=== PATIENT | female | born 1990 | race Two or more races ===

== ENCOUNTER 2016-12-13 23:52 | Emergency (ER) | payer OTHER ==
[2016-12-14 02:53] LABS: Hematocrit 37 % (35-47); Hemoglobin 12.7 g/dl (12.0-16.0); Mean Corpuscular HGB Conc 34 g/dl (31-36); Mean Corpuscular Hemoglobin 31 pg (27-31); Mean Corpuscular Volume 90 fL (80-97); Mean Platelet Volume 9 um3 (7.4-10.4); Red Blood Count 4.07 10^6/ul (4.0-5.4); Red Cell Distribution Width 13 % (10.5-15); White Blood Count 3.6 10^3/ul (3.5-10.8)
[2016-12-14 03:01] LABS: Albumin 4.3 g/dL (3.2-5.2); Anion Gap 7 mmol/L (2-11); BUN/Creatinine Ratio 9.2 (8-20); Blood Urea Nitrogen 6 mg/dL (6-24); CO2 Carbon Dioxide 24 mmol/L (22-32); Calcium 8.8 mg/dL (8.6-10.3); Chloride 102 mmol/L (101-111); EGFR African American 141.7 (>60); EGFR Non-African American 110.2 (>60); Glucose 124 mg/dL (70-100); Potassium 3.5 mmol/L (3.5-5.0); Sodium 133 mmol/L (133-145); Total Protein 6.9 g/dL (6.4-8.9)
[2016-12-14 03:02] LABS: ALT 15 U/L (7-52); AST 21 U/L (13-39); Alkaline Phosphatase 45 U/L (34-104); C Reactive Protein 163.38 mg/L (< 5.00); Globulin 2.6 g/dL (2-4); Lipase 21 U/L (11.0-82.0)
[2016-12-14 03:41] LABS: Urine Bilirubin Negative (Negative); Urine Glucose Negative (Negative); Urine Nitrite Negative (Negative)
[2016-12-14] MEDS ORDERED: Ondansetron INJ* 2 MG/ML VIAL IV ONE (05:35)
[2016-12-14] MEDS ORDERED: Ciprofloxacin 400MG IVPREMIX(* 400 MG/200 ML BAG IVPB ONE (05:35)
[2016-12-14] MEDS ORDERED: NS 0.9% 1000 ML* 2,000 ML IV ONE (05:38)
[2016-12-14] MEDS ORDERED: NS 0.9% 1000 ML* 1,000 ML BOLUS SCH (05:45)
[2016-12-14] MEDS ORDERED: Iohexol 300* (CONTRAST) 10 ML SDV IV ONE (05:47)
[2016-12-14] MEDS ORDERED: Metoclopramide IV* 5 MG/ML 2 ML VIAL IV ONE (06:17)
--- NOTE | 2016-12-14 07:49 | ED ---
Jerman Best Thomas, scribed for Shanika Pak MD on 12/14/16 at 0513 . HPI Febrile Illness - HPI Summary HPI Summary: The pt is a 26 y/o F accompanied by boyfriend presenting to the ED c/o a fever ( Tmax 102) and diarrhea that began two days ago. At first, she had bloody stools , but in the last two days her stools have been watery. Bloody stools are not unusual for her. The pt rates the pain 4/10. The patient has treated the fever with ibuprofen [employer]. She vomited after taking ciprofloxacin last night, causing her to miss her dosage. She had an appointment at [facility] two days ago and was diagnosed with a kidney infection. She was discharged with a prescription of Ciprofloxacin. Pt additionally c/o chills, diaphoresis, lower abd pain, and vomiting. Pt denies any other complaints at this time. PMHx: IBS. PSHx: none. SHx: no smoking, no alcohol use, no illicit drug use. FHx: DM. She is on Nexplanon and her menstrual cycle was 04/2014. She has never been . - History of Current Complaint Chief Complaint: EDNauseaVomitDiarrh Time Seen by Provider: 12/14/16 04:43 Hx Obtained From: Patient, Family/Cds Sales Advisor - boyfriend in room Onset/Duration: Started Days Ago - 2, Still Present Timing: Constant Temperature: 102 F Initial Severity: Moderate Current Severity: Moderate Pain Intensity: 4 Pain Scale Used: 0-10 Numeric Aggravating Factors: Nothing Alleviating Factors: Nothing Associated Signs and Symptoms: Chills, Diaphoresis, Diarrhea, Vomiting, Other: - POS: lower abd pain; NEG: any other complaints - Allergy/Home Medications Allergies/Adverse Reactions: Allergies Allergy/AdvReac Type Severity Reaction Status Date / Time No Known Allergies Allergy Verified 12/14/16 00:06 PMH/Surg Hx/FS Hx/Imm Hx Previously Healthy: No - IBS Cardiovascular History: Denies: Hx Myocardial Infarction Respiratory History: Denies: Hx Chronic Obstructive Pulmonary Disease (COPD) GI History: Reports: Other GI Disorders - Hx IBS - Surgical History Surgery Procedure, Year, and Place: none Infectious Disease History: No Infectious Disease History: Denies: Traveled Outside the [place] in Last 30 Days - Family History Known Family History: Positive: Diabetes - Social History Occupation: Student Alcohol Use: None Substance Use Type: Reports: None Smoking Status (MU): Never Smoked Tobacco Review of Systems Positive: Chills, Skin Diaphoresis. Negative: Fever - afebrile in the ED, but fever onset two days ago with Tmax 102 Cardiovascular: Negative Respiratory: Negative Positive: Abdominal Pain - lower, Vomiting, Diarrhea - onset two days Positive: see HPI Psychological: Normal All Other Systems Reviewed And Are Negative: Yes Physical Exam Triage Information Reviewed: Yes Vital Signs On Initial Exam: Initial Vitals Temp Pulse Resp BP Pulse Ox 98.1 F 129 16 101/61 97 12/14/16 00:02 12/14/16 00:02 12/14/16 00:02 12/14/16 00:02 12/14/16 00:02 Vital Signs Reviewed: Yes Appearance: Positive: Well-Appearing, Well-Nourished, Pain Distress Skin: Positive: Warm, Skin Color Reflects Adequate Perfusion Head/Face: Positive: Normal Head/Face Inspection Eyes: Positive: Conjunctiva Clear ENT: Positive: Normal ENT inspection Neck: Positive: Supple Respiratory/Lung Sounds: Positive: Clear to Auscultation, Breath Sounds Present , Other - No respiratory distress Cardiovascular: Positive: RRR, Pulses are Symmetrical in both Upper and Lower Extremities, Other - Brisk cap refill. Negative: Murmur Abdomen Description: Positive: Nontender, Soft, McBurney's Point Tenderness, Other: - no guarding, no rebound Bowel Sounds: Positive: Present Musculoskeletal: Positive: Strength/ROM Intact Neurological: Positive: Alert, Oriented to Person Place, Time, Facial Symmetry, Speech Normal, Other - Motor intact Psychiatric: Positive: Normal - Madhavi Coma Scale Coma Scale Total: 15 Diagnostics - Vital Signs Vital Signs Temp Pulse Resp BP Pulse Ox 12/14/16 04:30 86 83/49 98 12/14/16 04:00 94 101/61 98 12/14/16 03:30 90 99/59 97 12/14/16 03:00 87 96/67 98 12/14/16 02:36 90 98 12/14/16 02:34 96/64 12/14/16 00:06 98.1 F 129 16 101/61 97 12/14/16 00:02 98.1 F 129 16 101/61 97 - Laboratory Lab Results: Lab Results 12/14/16 12/14/16 12/14/16 Range/Units 02:35 02:35 02:35 WBC 3.6 (3.5-10.8) 10^3/ul RBC 4.07 (4.0-5.4) 10^6/ul Hgb 12.7 (12.0-16.0) g/dl Hct 37 (35-47) % MCV 90 (80-97) fL MCH 31 (27-31) pg MCHC 34 (31-36) g/dl RDW 13 (10.5-15) % Plt Count 156 (150-450) 10^3/ul MPV 9 (7.4-10.4) um3 Neut % (Auto) 77.8 (38-83) % Lymph % (Auto) 11.2 L (25-47) % Hyde % (Auto) 10.6 H (1-9) % Eos % (Auto) 0.1 (0-6) % Baso % (Auto) 0.3 (0-2) % Absolute Neuts (auto) 2.8 (1.5-7.7) 10^3/ul Absolute Lymphs (auto) 0.4 L (1.0-4.8) 10^3/ul Absolute Monos (auto) 0.4 (0-0.8) 10^3/ul Absolute Eos (auto) 0 (0-0.6) 10^3/ul Absolute Basos (auto) 0 (0-0.2) 10^3/ul Absolute Nucleated RBC 0 10^3/ul Nucleated RBC % 0.1 Sodium 133 (133-145) mmol/L Potassium 3.5 (3.5-5.0) mmol/L Chloride 102 (101-111) mmol/L Carbon Dioxide 24 (22-32) mmol/L Anion Gap 7 (2-11) mmol/L BUN 6 (6-24) mg/dL Creatinine 0.65 (0.51-0.95) mg/dL Est GFR ( Amer) 141.7 (>60) Est GFR (Non-Af Amer) 110.2 (>60) BUN/Creatinine Ratio 9.2 (8-20) Glucose 124 H (70-100) mg/dL Lactic Acid 0.6 (0.5-2.0) mmol/L Calcium 8.8 (8.6-10.3) mg/dL Total Bilirubin 1.10 H (0.2-1.0) mg/dL AST 21 (13-39) U/L ALT 15 (7-52) U/L Alkaline Phosphatase 45 (34-104) U/L C-Reactive Protein 163.38 H (< 5.00) mg/L Total Protein 6.9 (6.4-8.9) g/dL Albumin 4.3 (3.2-5.2) g/dL Globulin 2.6 (2-4) g/dL Albumin/Globulin Ratio 1.7 (1-3) Lipase 21 (11.0-82.0) U/L Urine Color Urine Appearance Urine pH (5-9) Ur Specific [place] (1.010-1.030) Urine Protein (Negative) Urine Ketones (Negative) Urine Blood (Negative) Urine Nitrate (Negative) Urine Bilirubin (Negative) Urine Urobilinogen (Negative) Ur Leukocyte Esterase (Negative) Urine Glucose (Negative) 12/14/16 Range/Units 03:30 WBC (3.5-10.8) 10^3/ul RBC (4.0-5.4) 10^6/ul Hgb (12.0-16.0) g/dl Hct (35-47) % MCV (80-97) fL MCH (27-31) pg MCHC (31-36) g/dl RDW (10.5-15) % Plt Count (150-450) 10^3/ul MPV (7.4-10.4) um3 Neut % (Auto) (38-83) % Lymph % (Auto) (25-47) % Hyde % (Auto) (1-9) % Eos % (Auto) (0-6) % Baso % (Auto) (0-2) % Absolute Neuts (auto) (1.5-7.7) 10^3/ul Absolute Lymphs (auto) (1.0-4.8) 10^3/ul Absolute Monos (auto) (0-0.8) 10^3/ul Absolute Eos (auto) (0-0.6) 10^3/ul Absolute Basos (auto) (0-0.2) 10^3/ul Absolute Nucleated RBC 10^3/ul Nucleated RBC % Sodium (133-145) mmol/L Potassium (3.5-5.0) mmol/L Chloride (101-111) mmol/L Carbon Dioxide (22-32) mmol/L Anion Gap (2-11) mmol/L BUN (6-24) mg/dL Creatinine (0.51-0.95) mg/dL Est GFR ( Amer) (>60) Est GFR (Non-Af Amer) (>60) BUN/Creatinine Ratio (8-20) Glucose (70-100) mg/dL Lactic Acid (0.5-2.0) mmol/L Calcium (8.6-10.3) mg/dL Total Bilirubin (0.2-1.0) mg/dL AST (13-39) U/L ALT (7-52) U/L Alkaline Phosphatase (34-104) U/L C-Reactive Protein (< 5.00) mg/L Total Protein (6.4-8.9) g/dL Albumin (3.2-5.2) g/dL Globulin (2-4) g/dL Albumin/Globulin Ratio (1-3) Lipase (11.0-82.0) U/L Urine Color Yellow Urine Appearance Clear Urine pH 6.0 (5-9) Ur Specific [place] 1.003 L (1.010-1.030) Urine Protein Negative (Negative) Urine Ketones Negative (Negative) Urine Blood Negative (Negative) Urine Nitrate Negative (Negative) Urine Bilirubin Negative (Negative) Urine Urobilinogen Negative (Negative) Ur Leukocyte Esterase Negative (Negative) Urine Glucose Negative (Negative) Result Diagrams: 12/14/16 02:35 12/14/16 02:35 Lab Statement: Any lab studies that have been ordered have been reviewed, and results considered in the medical decision making process. - CT abdomen and pelvis CT Interpretation: No Acute Changes CT Interpretation Completed By: Radiologist Re-Evaluation - Re-Evaluation First Eval Change: Improved - 0745 no vomiting, no diarrhea, back from CT, pain controlled Second Eval Re-Evaluation Time: 09:40 - no vomiting or diarrhea. pain is controlled, agrees to DC. Change: Improved Course/Dx - Course Course Of Treatment: pt was unable to produce stool in ED. Cipro will treat pyelonephritis and infectious diarrhea, will continue IV since pt vomited po. Pt given reglan and zofran with relief of nausea. Rx zofran to go. Finish Cipro. - Febrile Illness Differential Diagnoses: Abd. Infection, Bacteremia, Fever of Unknown Origin, Pyelonephritis, Other: - infectious diarrhea - Diagnoses Provider Diagnoses: Pyelonephritis, Diarrhea, Abdominal pain Discharge - Discharge Plan Condition: Stable Disposition: HOME Prescriptions: Ondansetron ODT TAB* [Zofran 4 MG Odt TAB*] 4 mg PO Q6H PRN #20 tab.odt PRN Reason: Nausea Patient Education Materials: Acute Nausea and Vomiting (ED), Acute Diarrhea (ED ), Kidney Infection (ED) Referrals: [facility] [Primary Care Provider] - Additional Instructions: You were given Ciprofloxacin 400mg IV at 0542 with zofran 4mg IV at 0542. You were also given metoclopramide 10mg IV at 0630. Your urine did not show any cells. Your labs were unremarkable except for your sed rate with showed inflammation, and your bilirubin (from your liver and gallbladder) which was on 0.[address] did not show gallstones. Also, the CT did not show any colitis, or appendicitis, or any cause for your abdominal pain. We advise that you follow up with Dr. Springer's office and with [facility]. You should continue and finish the Cipro you were given. Dr. Pak prescribed zofran (ondansetron) to help with further nausea. Return to the ER if you have any new or worsening symptoms. The documentation as recorded by the Jerman worthy Thomas accurately reflects the service I personally performed and the decisions made by , Shanika Pak MD.
--- NOTE | 2016-12-14 08:44 | RAD ---
INDICATION: Abdominal pain, history of irritable bowel syndrome, pyelonephritis, bloody diarrhea. COMPARISON: There are no prior studies available for comparison. TECHNIQUE: A CT scan of the abdomen and pelvis was performed with intravenous and oral contrast following intravenous injection of 88 ml of Omnipaque 300 nonionic contrast. Contiguous axial sections were obtained from the lung bases through the symphysis pubis. Images were reconstructed in the coronal and sagittal planes. FINDINGS: There is mild dependent bilateral lower lobe subsegmental atelectasis. No pleural effusion is present. The liver and spleen are within normal limits in size without significant focal abnormality. No calcified gallstones are seen. The pancreas appears to be within normal limits in size. The kidneys and adrenal glands are normal in size. No hydronephrosis is seen. No significant focal renal abnormality is seen. The aorta is normal in caliber and demonstrates homogeneous contrast opacification. No significant enlarged retroperitoneal lymph nodes are seen. The stomach and small bowel appear nondistended. There is mild gaseous distention of the colon. The appendix is within normal limits. There is no evidence for diverticulitis or colitis. The uterus is anteverted and normal in size. No free intraperitoneal air or fluid is seen. No significant focal osseous abnormality is seen. IMPRESSION: NO EVIDENCE FOR ACUTE FINDING OR CAUSE FOR THE PATIENT'S ABDOMINAL PAIN IS SEEN.
[2016-12-14 10:31] VITALS: BP 128/78
== END 2016-12-14 10:28 | disposition home or self-care (01) ==
LOC: ED 23:52
DX: R11.10 Vomiting, unspecified (principal); R19.7 Diarrhea, unspecified; R10.9 Unspecified abdominal pain; N12 Tubulo-interstitial nephritis, not specified as acute or chronic
CPT/HCPCS: 36415; 74177; 80053; 81003; 83605; 83690; 84702; 85025; 86140; 99284; J0744; J2405; J2765; Q9967